=== PATIENT | male | born 1960 | race Caucasian/White ===

== ENCOUNTER 2021-04-17 22:23 | Inpatient (IN) | payer MEDICARE, OTHER ==
[~2021-04-17] VITALS: Ht 175.3 cm; Wt 71.4 kg
[2021-04-17 23:28] LABS: HEMOGLOBIN 12.9 gm/dl (14.0-17.5); RED BLOOD COUNT 4.49 M/UL (4.20-5.50); WHITE BLOOD COUNT 5.6 K/UL (4.5-11.0)
[2021-04-17 23:47] LABS: BUN/CREATININE RATIO 26 (0-10)
[2021-04-18] MEDS ORDERED: LISINOPRIL40 MG PO (10:49)
[2021-04-18] MEDS ORDERED: ADVAIR 250-501 EACH INH (10:49)
[2021-04-18 12:04] LABS: BUN/CREATININE RATIO 19 (0-10)
[2021-04-19 01:53] LABS: HEMOGLOBIN 13.8 gm/dl (14.0-17.5); RED BLOOD COUNT 4.8 M/UL (4.20-5.50)
[2021-04-19 01:54] LABS: WHITE BLOOD COUNT 7.1 K/UL (4.5-11.0)
[2021-04-19 02:11] LABS: BUN/CREATININE RATIO 21 (0-10)
[2021-04-20 06:24] LABS: HEMOGLOBIN 14.4 gm/dl (14.0-17.5); RED BLOOD COUNT 4.97 M/UL (4.20-5.50); WHITE BLOOD COUNT 6.9 K/UL (4.5-11.0)
[2021-04-20 07:17] LABS: BUN/CREATININE RATIO 19 (0-10)
[2021-04-21 06:13] LABS: BUN/CREATININE RATIO 22 (0-10)
[2021-04-22 06:31] LABS: WHITE BLOOD COUNT 6.3 K/UL (4.5-11.0)
[2021-04-22 06:41] LABS: HEMOGLOBIN 16.4 gm/dl (14.0-17.5); RED BLOOD COUNT 5.97 M/UL (4.20-5.50)
[2021-04-22 06:56] LABS: BUN/CREATININE RATIO 34 (0-10)
--- NOTE | 2021-04-22 20:51 | NUR ---
2044- PT REMOVED LIFE VEST. PT STATED THAT THE LIFE VEST WAS IRRITATING HIM AND CAUSING RIB SPASMS. PT REFUSED TO ALLOW ME TO PLACE BACK ON HIM AND TRY ADJUSTING IT. I PROVIDED EDUCATION AND EXPLAINED THE RISKS OF NOT WEARING IT AND HE VERBALIZED UNDERSTANDING. I NOTIFIED WHO GAVE NO FURTHER ORDERS.
[2021-04-24 08:06] LABS: BUN/CREATININE RATIO 33 (0-10)
[2021-04-24] MEDS ORDERED: DIGOXIN125 MCG PO (09:38)
[2021-04-24] MEDS ORDERED: METOPROLOL SUCC50 MG PO (09:38)
[2021-04-24] MEDS ORDERED: ASPIRIN EC81 MG PO (09:38)
[2021-04-24] MEDS ORDERED: ELIQUIS 5 MG TAB5 MG PO (09:38)
[2021-04-24] MEDS ORDERED: FAMOTIDINE20 MG PO (09:38)
[2021-04-24] MEDS ORDERED: FUROSEMIDE20 MG PO (09:39)
== END 2021-04-24 16:45 | disposition home or self-care (01) | DRG 280 ==
LOC: ER1 22:23 → CDU 04-18 03:42 → MED SURG 4 04-18 03:42 → CDU 04-18 03:42 → CCU 04-18 03:42 → MED SURG 4 04-18 14:42
PROVIDERS: Emergency Medicine; Internal Medicine; Internal Medicine Cardiovascular Disease; Physician Assistant Medical; ADMIT Internal Medicine
PROC: B24BZZ4 Ultrasonography of Heart with Aorta, Transesophageal (ICD-10-PCS; principal; 2021-04-18)
DX: I11.0 Hypertensive heart disease with heart failure (principal); I50.23 Acute on chronic systolic (congestive) heart failure; I21.A1 Myocardial infarction type 2; J96.01 Acute respiratory failure with hypoxia; K80.00 Calculus of gallbladder with acute cholecystitis without obstruction; N17.9 Acute kidney failure, unspecified; E87.3 Alkalosis; J44.9 Chronic obstructive pulmonary disease, unspecified; F19.10 Other psychoactive substance abuse, uncomplicated; I42.8 Other cardiomyopathies; Z20.822 Contact with and (suspected) exposure to COVID-19; I25.10 Atherosclerotic heart disease of native coronary artery without angina pectoris; F17.210 Nicotine dependence, cigarettes, uncomplicated; E78.5 Hyperlipidemia, unspecified; R19.7 Diarrhea, unspecified; Z96.619 Presence of unspecified artificial shoulder joint; Z90.89 Acquired absence of other organs; Z90.49 Acquired absence of other specified parts of digestive tract; Z98.49 Cataract extraction status, unspecified eye; Z82.49 Family history of ischemic heart disease and other diseases of the circulatory system; Z95.1 Presence of aortocoronary bypass graft; Z91.14 Patient's other noncompliance with medication regimen; Z79.82 Long term (current) use of aspirin; Z79.899 Other long term (current) drug therapy
CPT/HCPCS: ECHO; 36415; 71045; 71046; 76705; 78452; 80048; 80053; 80162; 82550; 82553; 83690; 83735; 83874; 83880; 84484; 85025; 85027; 85610; 85730; 87040; 93005; 93017; 93306; 94640; 94664; 94760; 97161; 99285; A9502; J1335; J1644; J1940; J2060; J2785; J7030; Q9967; U0002

== ENCOUNTER 2021-06-30 11:51 | Inpatient (IN) | payer MEDICARE ==
[~2021-06-30] VITALS: Ht 172.7 cm; Wt 71.4 kg
[~2021-06-30 11:51] MED LIST: ADVAIR 250-501 EACH INH; ASPIRIN EC81 MG PO; DIGOXIN125 MCG PO; ELIQUIS 5 MG TAB5 MG PO; FAMOTIDINE20 MG PO; FUROSEMIDE20 MG PO; LISINOPRIL40 MG PO; METOPROLOL SUCC50 MG PO
[2021-06-30 12:53] LABS: HEMOGLOBIN 14.4 gm/dl (14.0-17.5); RED BLOOD COUNT 5.05 M/UL (4.20-5.50); WHITE BLOOD COUNT 6.9 K/UL (4.5-11.0)
[2021-06-30 13:17] LABS: BUN/CREATININE RATIO 22 (0-10)
[2021-06-30] MEDS ORDERED: PEPCID20 MG PO (17:27)
[2021-06-30] MEDS ORDERED: DIGOXIN125 MCG PO (17:27)
[2021-06-30] MEDS ORDERED: ELIQUIS5 MG PO (17:27)
[2021-06-30] MEDS ORDERED: ASPIRIN EC81 MG PO (17:28)
[2021-06-30] MEDS ORDERED: METOPROLOL SUCC50 MG PO (17:28)
[2021-06-30] MEDS ORDERED: FUROSEMIDE20 MG PO (17:28)
[2021-07-01 04:23] LABS: HEMOGLOBIN 13.8 gm/dl (14.0-17.5); RED BLOOD COUNT 4.93 M/UL (4.20-5.50); WHITE BLOOD COUNT 6.4 K/UL (4.5-11.0)
[2021-07-01 04:35] LABS: BUN/CREATININE RATIO 19 (0-10)
[2021-07-02 08:53] LABS: HEMOGLOBIN 14.9 gm/dl (14.0-17.5); RED BLOOD COUNT 5.27 M/UL (4.20-5.50); WHITE BLOOD COUNT 5.3 K/UL (4.5-11.0)
[2021-07-02 09:16] LABS: BUN/CREATININE RATIO 21 (0-10)
[2021-07-03 04:34] LABS: RED BLOOD COUNT 5.33 M/UL (4.20-5.50)
[2021-07-03 05:10] LABS: BUN/CREATININE RATIO 33 (0-10)
[2021-07-03] MEDS ORDERED: ALDACTONE 25MG25 MG PO (10:36)
[2021-07-03] MEDS ORDERED: METOPROLOL SUC100 MG PO (10:36)
[2021-07-03] MEDS ORDERED: COZAAR 25MG TAB25 MG PO (10:36)
[2021-07-03] MEDS ORDERED: FUROSEMIDE40 MG PO (10:36)
[2021-07-03] MEDS ORDERED: ELIQUIS5 MG PO (10:46)
[2021-07-03] MEDS ORDERED: ASPIRIN EC81 MG PO (10:51)
[2021-07-03] MEDS ORDERED: DIGOXIN125 MCG PO (10:52)
== END 2021-07-03 11:17 | disposition home or self-care (01) | DRG 291 ==
LOC: ER1 11:51 → M/S 16:17 → CDU 16:17 → M/S 17:50
PROVIDERS: Physician Assistant; ADMIT Internal Medicine
PROC: 8E0ZXY6 Isolation (ICD-10-PCS; principal; 2021-06-30)
DX: I11.0 Hypertensive heart disease with heart failure (principal); I50.23 Acute on chronic systolic (congestive) heart failure; U07.1 COVID-19; J12.82 Pneumonia due to coronavirus disease 2019; J44.0 Chronic obstructive pulmonary disease with (acute) lower respiratory infection; I25.10 Atherosclerotic heart disease of native coronary artery without angina pectoris; I08.1 Rheumatic disorders of both mitral and tricuspid valves; I42.8 Other cardiomyopathies; F15.10 Other stimulant abuse, uncomplicated; Z96.612 Presence of left artificial shoulder joint; F17.210 Nicotine dependence, cigarettes, uncomplicated; I51.3 Intracardiac thrombosis, not elsewhere classified; F10.10 Alcohol abuse, uncomplicated; Z91.14 Patient's other noncompliance with medication regimen; Z90.89 Acquired absence of other organs; Z98.890 Other specified postprocedural states; Z83.3 Family history of diabetes mellitus; Z90.49 Acquired absence of other specified parts of digestive tract; Z98.49 Cataract extraction status, unspecified eye; Z79.82 Long term (current) use of aspirin; Z79.899 Other long term (current) drug therapy; Z79.01 Long term (current) use of anticoagulants
CPT/HCPCS: 36415; 71045; 80053; 80307; 82550; 82553; 83735; 83880; 84484; 85025; 93005; 96374; 99285; J1940; U0002